=== PATIENT | male | born 1990 | race Caucasian/White ===

== ENCOUNTER 2018-06-13 20:01 | Emergency (ER) | payer OTHER ==
[~2018-06-13] VITALS: Ht 193 cm; Wt 86.6 kg
[2018-06-13 20:05] VITALS: Ht 193 cm; Wt 86.6 kg
[2018-06-13 23:43] VITALS: BP 116/76
== END 2018-06-13 23:43 | disposition home or self-care (01) ==
LOC: ED 20:01
DX: N20.0 Calculus of kidney (principal); E11.9 Type 2 diabetes mellitus without complications